=== PATIENT | female | born 1995 | race African-American/Black ===

== ENCOUNTER 2017-08-04 06:26 | Emergency (ER) | payer OTHER ==
[~2017-08-04] VITALS: Ht 154.9 cm; Wt 67.7 kg
[~2017-08-04 06:26] MED LIST: AMOXICILLIN500 M1 PO; MOTRIN800 MG PO; NAPROSYN500 MG PO; SKELAXIN800 MG PO
[2017-08-04] MEDS ORDERED: NAPROSYN500 MG PO (07:11)
[2017-08-04] MEDS ORDERED: AMOXICILLIN500 MG PO (07:11)
[2017-08-04 07:19] VITALS: BP 131/55
== END 2017-08-04 07:20 | disposition home or self-care (01) ==
LOC: EME 06:26
PROC: 3E0T3BZ Introduction of Anesthetic Agent into Peripheral Nerves and Plexi, Percutaneous Approach (ICD-10-PCS; principal; 2017-08-04)
DX: K08.89 Other specified disorders of teeth and supporting structures (principal)
CPT/HCPCS: 99281; 99282

== ENCOUNTER 2017-10-07 10:21 | Emergency (ER) | payer OTHER ==
[~2017-10-07] VITALS: Ht 154.9 cm; Wt 63.6 kg
[~2017-10-07 10:21] MED LIST changes: +AMOXICILLIN500 MG PO
[2017-10-07 10:24] VITALS: BP 117/71
[2017-10-07] MEDS ORDERED: MOTRIN600 MG PO (12:27)
== END 2017-10-07 13:19 | disposition home or self-care (01) ==
LOC: EME 10:21
DX: S93.602A Unspecified sprain of left foot, initial encounter (principal); M25.572 Pain in left ankle and joints of left foot; X58.XXXA Exposure to other specified factors, initial encounter
CPT/HCPCS: 73610; 73630; 99281; 99284

== ENCOUNTER 2017-11-08 18:45 | Emergency (ER) | payer OTHER ==
[~2017-11-08] VITALS: Ht 154.9 cm; Wt 67.9 kg
[~2017-11-08 18:45] MED LIST changes: +MOTRIN600 MG PO
[2017-11-08 19:39] LABS: MCH 24.8 PG (29.0-34.0); MCHC 32.2 G/DL (30.0-36.0); MCV 77.2 FL (83-99); MEAN PLAT.VOLUME 12.1 uM^3 (9.5-12.4); PLATELET COUNT 311 K/uL (156-360); RBC DIS.WIDTH-CV 18.5 % (11.8-14.6); RBC DIS.WIDTH-SD 51.1 % (39-53); RED BLOOD COUNT 4.79 M/uL (3.80-5.20); WHITE BLOOD COUNT 9.1 K/uL (4.1-10.2)
[2017-11-08 19:51] LABS: CHLORIDE 111 mEq/L (99-109); POTASSIUM 3.8 mEq/L (3.7-5.4); SODIUM 137 mEq/L (136-147)
[2017-11-08 19:53] LABS: GLUCOSE 88 mg/dL (70-99)
[2017-11-08 19:54] LABS: ANION GAP 7 MEQ/L (2-14)
[2017-11-08 19:55] LABS: TOTAL BILIRUBIN 0.2 mg/dL (0.0-1.0)
[2017-11-08 19:56] LABS: ALKALINE PHOSPHATASE 71 IU/L (3-129)
[2017-11-08 19:57] LABS: GFR ESTIMATE (CALCULATED) > 59 mL/min/
[2017-11-08 19:58] LABS: UREA NITROGEN (BUN) 6 mg/dL (9-23)
[2017-11-08 20:51] LABS: ADD MIUA? NO; BILIRUBIN NEGATIVE; BLOOD NEGATIVE; COLOR STRAW ((YELLOW)); GLUCOSE (STRIP) NEGATIVE; KETONES 5; LEUKOCYTES NEGATIVE; NITRITE NEGATIVE; PROTEIN (STRIP) NEGATIVE; UCUL ADDED? NO; UROBILINOGEN 0.2 MG/DL (0.2-1.0)
[2017-11-08 23:27] VITALS: BP 119/67
== END 2017-11-08 23:28 | disposition home or self-care (01) ==
LOC: EME 18:45
DX: O20.0 Threatened abortion (principal); O26.891 Other specified pregnancy related conditions, first trimester; R10.31 Right lower quadrant pain; Z3A.01 Less than 8 weeks gestation of pregnancy; Z87.891 Personal history of nicotine dependence
CPT/HCPCS: 76801; 80053; 81003; 84702; 85027

== ENCOUNTER 2017-12-18 14:32 | Emergency (ER) | payer OTHER | END 2017-12-18 16:18 | disposition left against medical advice (07) | LOC: EME 14:32 | DX: R42 Dizziness and giddiness (principal); Z53.21 Procedure and treatment not carried out due to patient leaving prior to being seen by health care provider ==

== ENCOUNTER 2018-05-07 14:28 | Outpatient (CLI) | payer OTHER ==
[~2018-05-07] VITALS: Ht 154.9 cm; Wt 61.8 kg
[2018-05-07 15:13] VITALS: BP 141/62
[2018-05-07 15:35] VITALS: BP 100/56
[2018-05-07] MEDS ORDERED: PRENATAL TABLE1 EAC3 PO (15:57)
[2018-05-07] MEDS ORDERED: IRON325 M1 PO (15:57)
[2018-05-07 21:54] LABS: CANDIDA DNA PROBE POSITIVE; GARDNERELLA DNA PROBE POSITIVE; TRICHOMONAS DNA PROBE NEGATIVE
== END 2018-05-07 16:14 | disposition home or self-care (01) ==
LOC: EME 14:28 → EDSTATUS 15:01 → LDRP-OP 15:02 → 2WEST 15:04
PROVIDERS: Advanced Practice Midwife
DX: O26.893 Other specified pregnancy related conditions, third trimester (principal); N89.8 Other specified noninflammatory disorders of vagina; R10.9 Unspecified abdominal pain; Z3A.30 30 weeks gestation of pregnancy
CPT/HCPCS: 59025; 87480; 87510; 87660; G0378

== ENCOUNTER 2018-05-25 16:31 | Outpatient (CLI) | payer OTHER ==
[~2018-05-25] VITALS: Ht 154.9 cm; Wt 72.5 kg
[~2018-05-25 16:31] MED LIST changes: +IRON325 M1 PO; +PRENATAL TABLE1 EAC3 PO
[2018-05-25 16:55] VITALS: BP 125/58
[2018-05-25 17:51] LABS: SOURCE SWAB
[2018-05-25 18:19] LABS: APPEARANCE CLEAR ((CLEAR)); BILIRUBIN NEGATIVE; BLOOD NEGATIVE; COLOR STRAW ((YELLOW)); GLUCOSE (STRIP) NEGATIVE; KETONES NEGATIVE; LEUKOCYTES LARGE; NITRITE NEGATIVE; PROTEIN (STRIP) NEGATIVE; SPECIFIC GRAVITY 1.003 (1.000-1.030); UROBILINOGEN 0.2 MG/DL (0.2-1.0)
[2018-05-25 18:25] LABS: BACTERIA RARE /HPF; EPITHELIAL CELLS RARE /HPF; MUCUS NONE SEEN /LPF; RED BLOOD CELLS 0-5 /HPF (0-5); UCUL ADDED? NO; WHITE BLOOD CELLS 0-5 /HPF (0-5)
[2018-05-25 19:28] VITALS: BP 135/71
[2018-05-25 22:34] LABS: CANDIDA DNA PROBE POSITIVE; GARDNERELLA DNA PROBE NEGATIVE; TRICHOMONAS DNA PROBE NEGATIVE
== END 2018-05-25 19:30 | disposition home or self-care (01) ==
LOC: LDRP-OP 16:31 → 2WEST 16:37 → LDRP-OP 08-11 09:53
PROVIDERS: Midwife; Obstetrics & Gynecology
DX: O26.893 Other specified pregnancy related conditions, third trimester (principal); Z3A.33 33 weeks gestation of pregnancy; M54.5 Low back pain; R10.2 Pelvic and perineal pain
CPT/HCPCS: 59025; 81003; 87086; 87480; 87491; 87510; 87591; 87660; G0378

== ENCOUNTER 2018-06-30 12:14 | Inpatient (IN) | payer OTHER ==
[~2018-06-30] VITALS: Ht 154.9 cm; Wt 77.7 kg
[2018-06-30] VITALS (24 sets, daily range): BP systolic 130–169; BP diastolic 69–96
[2018-06-30 14:00] LABS: BASOPHIL (%) 0.4 % (0-1); EOSINOPHIL (%) 1.2 % (0-5); EOSINOPHIL COUNT 0.1 K/uL (0-0.3); HEMATOCRIT 25.2 % (36.0-46.0); HEMOGLOBIN 7.5 G/DL (11.9-15.5); IMMATURE GRANULOCYTE (%) 0.4 % (0.0-0.7); LYMPHOCYTE (%) 29.3 % (15-42); MCH 20.9 PG (29.0-34.0); MCHC 29.8 G/DL (30.0-36.0); MCV 70.2 FL (83-99); MONOCYTE (%) 9.3 % (3-12); MONOCYTE COUNT 0.6 K/uL (0-0.8); NEUTROPHIL (%) 59.4 % (45-76); NEUTROPHIL COUNT 4.1 K/uL (1.8-6.4); NRBC (%) 0.7 /100 WBC (0-0); PLATELET COUNT 192 K/uL (156-360); RBC DIS.WIDTH-CV 19.9 % (11.8-14.6); RBC DIS.WIDTH-SD 48.8 % (39-53); RED BLOOD COUNT 3.59 M/uL (3.80-5.20); WHITE BLOOD COUNT 6.9 K/uL (4.1-10.2)
[2018-06-30 14:01] LABS: CHLORIDE 110 mEq/L (99-109); POTASSIUM 3.9 mEq/L (3.7-5.4); SODIUM 137 mEq/L (136-147)
[2018-06-30 14:03] LABS: GLUCOSE 100 mg/dL (70-99)
[2018-06-30 14:04] LABS: TOTAL PROTEIN 5.2 g/dL (6.4-8.3)
[2018-06-30 14:05] LABS: TOTAL BILIRUBIN 0.3 mg/dL (0.0-1.0)
[2018-06-30 14:07] LABS: ALKALINE PHOSPHATASE 218 IU/L (3-129); CREATININE 0.7 mg/dL (0.6-1.3); GFR ESTIMATE (CALCULATED) > 59 mL/min/
[2018-06-30 14:08] LABS: UREA NITROGEN (BUN) 7 mg/dL (9-23)
[2018-06-30 14:09] LABS: AST (GOT) 20 IU/L (2-34)
[2018-06-30 14:10] LABS: ALT (GPT) 8 IU/L (3-49)
[2018-06-30 15:05] LABS: UR CREATININE CONCENTRATION 175.7 MG/DL
[2018-06-30 23:03] LABS: AMPHETAMINE NEGATIVE (500 ng/mL); BARBITURATES NEGATIVE (200 ng/mL); BENZODIAZEPINES NEGATIVE (150 ng/mL); BUPRENORPHINE NEGATIVE (10 ng/mL); COCAINE NEGATIVE (150 ng/mL); METHADONE NEGATIVE (200 ng/mL); METHAMPHETAMINE NEGATIVE (500 ng/mL); OPIATES (MORPHINE) NEGATIVE (100 ng/mL); OXYCODONE NEGATIVE (100 ng/mL); PHENCYCLIDINE NEGATIVE (25 ng/mL); PROPOXYPHENE NEGATIVE (300 ng/mL); THC CANNABINOIDS NEGATIVE (50 ng/mL); TRICYCLIC ANTIDEPRESSANTS NEGATIVE (300 ng/mL)
[2018-07-01] VITALS (30 sets, daily range): BP systolic 119–162; BP diastolic 70–101
[2018-07-02] VITALS (11 sets, daily range): BP systolic 133–160; BP diastolic 76–125
[2018-07-02] MEDS ORDERED: IBUPROFEN800 MG PO (00:18)
[2018-07-03 03:41] VITALS: BP 128/60
[2018-07-03 07:46] VITALS: BP 145/84
[2018-07-03 10:13] VITALS: BP 125/72
== END 2018-07-03 14:06 | disposition home or self-care (01) | DRG 774 ==
LOC: LDRP-OP 12:14 → 2WEST 12:15 → LDRP-OP 08-11 19:57
PROVIDERS: Obstetrics & Gynecology
PROC: 3E0P7VZ Introduction of Hormone into Female Reproductive, Via Natural or Artificial Opening (ICD-10-PCS; 2018-06-30)
PROC: 10E0XZZ Delivery of Products of Conception, External Approach (ICD-10-PCS; principal; 2018-07-01)
PROC: 0HQ9XZZ Repair Perineum Skin, External Approach (ICD-10-PCS; 2018-07-01)
PROC: 3E0S3BZ Introduction of Anesthetic Agent into Epidural Space, Percutaneous Approach (ICD-10-PCS; 2018-07-01)
PROC: 00HU33Z Insertion of Infusion Device into Spinal Canal, Percutaneous Approach (ICD-10-PCS; 2018-07-01)
DX: O99.02 Anemia complicating childbirth (principal); O15.1 Eclampsia complicating labor; O99.354 Diseases of the nervous system complicating childbirth; Z3A.38 38 weeks gestation of pregnancy; Z37.0 Single live birth; O70.0 First degree perineal laceration during delivery; O14.04 Mild to moderate pre-eclampsia, complicating childbirth; O13.4 Gestational [pregnancy-induced] hypertension without significant proteinuria, complicating childbirth; O99.52 Diseases of the respiratory system complicating childbirth; J45.909 Unspecified asthma, uncomplicated; F41.0 Panic disorder [episodic paroxysmal anxiety]; O99.344 Other mental disorders complicating childbirth; G43.909 Migraine, unspecified, not intractable, without status migrainosus; M41.9 Scoliosis, unspecified; E78.5 Hyperlipidemia, unspecified; O99.284 Endocrine, nutritional and metabolic diseases complicating childbirth; D50.9 Iron deficiency anemia, unspecified; O69.81X1 Labor and delivery complicated by cord around neck, without compression, fetus 1
CPT/HCPCS: 80053; 82570; 84156; 85025; 86850; 86900; 86901; C1755; G0378; J0595; J1050; J2405; J3010; J7120